=== PATIENT | female | born 1985 | race Caucasian/White ===

== ENCOUNTER → 2021-01-26 13:42 | Outpatient (CLI) | payer OTHER, SELFPAY ==
[2021-01-26 14:19] LABS: Final Volume 0.5 mL; Initial Volume 5 mL; Semen 30 min. Liquification? Yes
== END ==
PROVIDERS: PCP Obstetrics & Gynecology; Visit Provider Obstetrics & Gynecology
DX: Z31.9 Encounter for procreative management, unspecified (principal)
CPT/HCPCS: 58323